=== PATIENT | male | born 1990 | race Caucasian/White ===

== ENCOUNTER 2023-08-21 11:44 | Outpatient (AMB) | payer OTHER, SELFPAY ==
--- NOTE | 2023-08-21 11:49 | MHC.OFFVIS ---
Intake Intake Visit Reasons: Low back pain/second opinion [employer] Required: No Assessment & Plan Assessment & Plan (1) Lumbago: Code(s): M54.50 - Low back pain, unspecified Plan Misael is a pleasant self-referred 32 y/o M who comes in today with a chief complaint of low back pain for the last 2 years. His initial injury that caused him back pain was a fall during basketball where he fell directly on his back on the concrete. He reports that 1 year ago it became significantly worse after he was lifting at the gym and heard a loud pop in his back. He reports associated numbness/tingling in his left foot after this incident. He states that it gradually got better over the course of months. He state that he now just has some residual nonspecific waxing/waning numbness in his left foot, accompanied by chronic low-grade low back pain. He states that [id number] medications help to modestly alleviate his pain. He reports he is prescribed meloxicam/gabapentin for pain control. He has been evaluated by a neurosurgeon and [place] who recommended he have a course of cortisone injections. He was concerned that his issue may be more severe than the other surgeon thinks, and wanted to be evaluated by us as he is concerned he may need surgery. PMH: High blood pressure. Social hx: Patient does not smoke, reports no substance use. Medications: Gabapentin, meloxicam. Allergies: NKDA. Physical exam: The patient has 5/5 strength in his upper and lower extremities, no sensational deficits to palpation. Reflexes are 2+ intact. The patient ambulates well and rises from seated position without difficulty. (-) straight leg raise bilaterally, (-) clonus, (-) Dc's. Imaging review: MRI of the lumbar spine completed at [facility] shows mild-moderate posterior disc bulge(s) at L3-4/L4-5 with moderate foraminal stenosis bilaterally at these levels. The foraminal stenosis is the worst at L3-4 on the right. There is still adequate disc height maintained at these levels. No acute osseous abnormalities noted. Impression: Misael is a pleasant 32-year-old male who comes in today with a chief complaint of low back pain that has been ongoing for the past 2 years. He reports that 1 year ago he had a significant inciting incident which she identifies as lifting at the gym. He states he felt a pop in his back and had some radicular symptoms go down his left leg into his left foot. He is currently being evaluated for his symptoms by a neurosurgeon in [place] who recommended that he have some cortisone injections prior to recommending any surgical interventions. He comes in today for a 2nd opinion regarding this surgeons decision-making. I advised him that we would also likely be sending him for injections prior to recommending any surgical interventions, would also want him to complete a course of physical therapy. I recommended that he continue to follow through with the previous surgeon's recommendations, and reach back out to our office if he has any new or worsening symptoms that he would like evaluated separately. The total time spent with this visit with this patient was 45 minutes reviewing history, physical exam, MRI imaging review, and implementation of treatment plan or further diagnostic testing Tyler Sparrow MD,PhD [facility] Coding Level of Care Code New Pt Level 4 (18477) Diagnoses Lumbago M54.50
== END 2023-08-21 12:24 | disposition home or self-care (01) ==
PROVIDERS: Visit Provider Physician Assistant
DX: M54.50 Low back pain, unspecified (principal)
CPT/HCPCS: 99204

== ENCOUNTER → 2023-08-21 11:44 | Outpatient (BNVA) | payer OTHER, SELFPAY | PROVIDERS: Visit Provider Physician Assistant | DX: M48.061 Spinal stenosis, lumbar region without neurogenic claudication (principal) | CPT/HCPCS: 99202 ==